=== PATIENT | male | born 1965 | race Caucasian/White ===

== ENCOUNTER 2017-03-29 09:50 | Emergency (ER) | payer MEDICAID ==
[~2017-03-29] VITALS: Ht 175.3 cm; Wt 70.3 kg
[2017-03-29 10:27] VITALS: BP 127/103
[2017-03-29] MEDS ORDERED: traMADol HCL 50 MG TAB PO ONE (11:00)
== END 2017-03-29 11:47 | disposition home or self-care (01) ==
LOC: ER 09:57
DX: S22.42XA Multiple fractures of ribs, left side, initial encounter for closed fracture (principal); W18.39XA Other fall on same level, initial encounter; Y93.89 Activity, other specified; Y92.89 Other specified places as the place of occurrence of the external cause; Y99.8 Other external cause status; J90 Pleural effusion, not elsewhere classified
CPT/HCPCS: 71250

== ENCOUNTER 2017-04-01 13:24 | Emergency (ER) | payer MEDICAID ==
[~2017-04-01] VITALS: Ht 175.3 cm; Wt 70.3 kg
[2017-04-01 16:16] VITALS: BP 118/72
== END 2017-04-01 17:18 | disposition home or self-care (01) ==
LOC: ER 13:24
DX: S22.42XA Multiple fractures of ribs, left side, initial encounter for closed fracture (principal); J90 Pleural effusion, not elsewhere classified; W18.39XA Other fall on same level, initial encounter; Y93.89 Activity, other specified; Y99.8 Other external cause status; Y92.89 Other specified places as the place of occurrence of the external cause
CPT/HCPCS: 71020